=== PATIENT | male | born 1945 | race Caucasian/White ===

== ENCOUNTER 2020-11-24 10:20 | Outpatient (REF) | payer OTHER, SELFPAY ==
[2020-11-24 11:08] LABS: COVID-19 Test Negative (Negative); IDNOW Serial# 55D5AD1C
== END 2020-11-24 10:21 | disposition home or self-care (01) ==
LOC: HO.LAB 10:20
PROVIDERS: Visit Provider Internal Medicine
DX: Z20.822 Contact with and (suspected) exposure to COVID-19 (principal)
CPT/HCPCS: 36415; 87635; C9803

== ENCOUNTER 2021-02-04 10:55 | Outpatient (REF) | payer OTHER, SELFPAY ==
--- NOTE | ~2021-02-04 | MR_ITS ---
MR BRAIN WITHOUT AND WITH CONTRAST CLINICAL INFORMATION: Hearing loss. Tinnitus right ear. COMPARISON: None available. TECHNIQUE: Multiplanar, multisequence MRI of the brain was obtained before and after the intravenous administration of 7 mL Gadavist. FINDINGS: The inner ear structures including the cochlea, vestibules, and semicircular canals exhibit preserved CSF signal intensity with no pathologic enhancement. The vestibular aqueducts are not enlarged. Cranial nerves VII and VIII complexes are normal in morphology. No enhancing CP angle/retrocochlear lesion. There is no pathologic intracranial enhancement. There is global cerebral volume loss and there is mild chronic microangiopathy. No acute infarct on diffusion-weighted imaging. No intracranial hemorrhage on the gradient series. No hydrocephalus, extra-axial surface collection, or herniation. The midline intracranial structures are normal. Cerebellar tonsils are normally positioned. Craniocervical junction is normal. Osseous marrow signal intensity remains homogeneous. No significant soft tissue abnormality is appreciated. MR/MR head/brain wo/w con IMPRESSION: - No retrocochlear pathology. - There is global cerebral volume loss and there is mild chronic microangiopathy.
== END 2021-02-04 10:56 | disposition home or self-care (01) ==
LOC: HO.MRI 10:55
PROVIDERS: PCP Internal Medicine; Visit Provider Otolaryngology
DX: H90.6 Mixed conductive and sensorineural hearing loss, bilateral (principal); H93.11 Tinnitus, right ear; D33.3 Benign neoplasm of cranial nerves
CPT/HCPCS: 70553; A9585

== ENCOUNTER 2023-06-11 03:43 | Emergency (ER) | payer OTHER, SELFPAY ==
--- NOTE | 2023-06-11 | ECG_ITS ---
Test Reason : SOB Blood Pressure : / mmHG Vent. Rate : 072 BPM Atrial Rate : 072 BPM P-R Int : 158 ms QRS Dur : 088 ms QT Int : 400 ms P-R-T Axes : 047 029 033 degrees QTc Int : 438 ms Normal sinus rhythm Normal ECG When compared with ECG of 06-NOV-2017 03:23, No significant change was found Referred By: Generic ED Physician Electronically Signed By:FIDEL MCNEAL MD
[2023-06-11 03:49] VITALS: BP 150/84; PULSE 73; RESP 15; TEMP 36.6; O2SAT 98; BMI 25.0
[2023-06-11 04:18] LABS: Basophils Percent Auto 0.7 % (0-2); Eosinophils Absolute Auto 0.2 X10*3/uL (0.0-0.4); Eosinophils Percent Auto 3.9 % (0-4); Hematocrit 41.5 % (42.0-52.0); Hemoglobin 13.8 g/dl (14.0-18.0); Imm Gran Abs Auto 0.01 X10*3/uL (0.00-0.03); Imm Gran Pct Auto 0.2 % (0.0-0.4); Lymphocytes Absolute Auto 1.4 X10*3/uL (1.2-4.9); Lymphocytes Percent Auto 23.4 % (20-40); MANUAL DIFF FLAG NO; Mean Corpuscular HGB Conc 33.3 g/dl (31.0-36.0); Mean Corpuscular Hemoglobin 30.5 pg (27.0-33.0); Mean Corpuscular Volume 91.8 fL (80.0-98.0); Mean Platelet Volume 10.8 fL (9.4-12.4); Monocytes Absolute Auto 0.7 X10*3/uL (0.1-1.2); Monocytes Percent Auto 11.9 % (2-11); Neutrophils Absolute Auto 3.6 x10*3/uL (2.0-8.3); Neutrophils Percent Auto 59.9 % (45-73); Platelet Count 127 X10*3/uL (160-400); Red Blood Count 4.52 X10*6/uL (4.60-5.80); Red Cell Distribution Width 12.4 % (11.0-16.0)
--- NOTE | 2023-06-11 04:18 | ED.GENADULT ---
HPI - General Adult General Chief complaint: General Medical Stated complaint: SoB, Head pain Time Seen by Provider: 06/11/23 04:10 Source: patient Mode of arrival: ambulatory Limitations: no limitations History of Present Illness HPI narrative: anxiety with left facial pain, patient has had headaches but tonight he developed left facial pain, this made him anxious. No chest pain, no fever Onset (ago): hour(s) Location: face Severity: mild Related Data Home Medications Medication Instructions Recorded Confirmed levothyroxine 50 mcg tablet 50 mcg PO DAILY 01/07/23 01/07/23 naproxen 250 mg tablet 250 mg PO BID PRN 01/07/23 01/07/23 Previous Rx's Medication Instructions Recorded amoxicillin 500 mg tablet 500 mg PO BID 7 days #14 tabs 01/07/23 acetaminophen 500 mg tablet 1,000 mg (2 x 500 mg) PO Q6H PRN 06/11/23 (Tylenol Extra Strength) pain #30 tabs Allergies Allergy/AdvReac Type Severity Reaction Status Date / Time No Known Allergies Allergy Unverified 01/07/23 11:59 Review of Systems Review of Systems: Yes all other systems are reviewed and are negative Neurologic: Denies Sensory deficit (Neuro) [facility] Social History Social History Smoked in Last 30 Days: No Use of substances other than those prescribed or required for medical reasons: No Advance Directives: Yes Advance Directives Information Provided: Yes Advance Directives on File: No Physical Exam ED Vital Signs: Vital Signs - 24 hr 06/11/23 03:49 06/11/23 05:16 Temperature 97.8 F 97.9 F Pulse Rate 73 67 Respiratory Rate 15 16 Blood Pressure 150/84 H 148/65 H Pulse Oximetry 98 97 Oxygen Delivery Method Room Air Room Air BMI result Body Mass Index 25.0 Const Other: anxious elederly male General: healthy appearing Nutritional Appearance: average body habitus Orientation/consciousness: oriented to person and patient oriented x3 Limitations: no limitations HENMT Other: poor dentition, left tender TMJ Head: Yes normal to inspection Ears: external ears normal General nose exam: Normal external nose present Mouth: Normal oral and palatal mucosa present and oropharynx normal Throat: Yes posterior oropharynx normal Eyes General: appearance normal, both eyes and all related structures Neck Neck: Yes normal visual inspection Chest Chest palpation & inspection: normal inspection of the chest Resp Auscultation: clear to auscultation bilaterally Cardio Jugular venous distension: no JVD Rate: regular rate Rhythm: regular rhythm Heart sounds: S1 normal heart sound present and S2 normal heart sound present GI Inspection: Yes normal to inspection Palpation (GI): Soft to palpation, nontender and No hepatosplenomegaly present Auscultation: normal bowel sounds General: Yes no CVA tenderness Back/Spine/Pelvis Back: no CVA tenderness Skin General skin exam: no rashes or lesions noted Neuro General: oriented to person and patient oriented x3 Cranial nerves: Yes CN's II-XII intact bilaterally Motor exam (neuro): 5/5 motor strength present throughout Sensory Exam: No Sensory deficit (Neuro) Extrem General: Yes normal to inspection Psych Appearance: grossly normal Course Reevaluation(s) Reevaluation #1: No sign of infection, the pain is right over the left TMJ will treat with tylenol for now Time: 05:33 Medical Decision Making Differential Diagnosis Differential Diagnoses: The differential diagnosis associated with the presentation includes (cardiac ischemia, dental infection, trigeminal neuralgia, TMJ syndrome were all considered) Admission/Observation Consideration of admission/observation: Escalation of care including admission/observation considered (upon arrival patient was considered for admission) Lab Data MDM Lab Attestation statement: I reviewed the patient's lab results. (renal insufficiency do not know his baseline) 06/11/23 04:13 06/11/23 04:13 Labs: Lab Results 06/11/23 Range/Units 04:13 WBC 6.0 (4.8-10.8) X10*3/uL RBC 4.52 L (4.60-5.80) X10*6/uL Hgb 13.8 L (14.0-18.0) g/dl Hct 41.5 L (42.0-52.0) % MCV 91.8 (80.0-98.0) fL MCH 30.5 (27.0-33.0) pg MCHC 33.3 (31.0-36.0) g/dl RDW 12.4 (11.0-16.0) % Plt Count 127 L (160-400) X10*3/uL MPV 10.8 (9.4-12.4) fL Immature Gran % (Auto) 0.2 (0.0-0.4) % Neut % (Auto) 59.9 (45-73) % Lymph % (Auto) 23.4 (20-40) % [place] % (Auto) 11.9 H (2-11) % Eos % (Auto) 3.9 (0-4) % Baso % (Auto) 0.7 (0-2) % Lymph # (Auto) 1.4 (1.2-4.9) X10*3/uL [place] # (Auto) 0.7 (0.1-1.2) X10*3/uL Eos # (Auto) 0.2 (0.0-0.4) X10*3/uL Baso # (Auto) 0.0 (0.0-0.2) X10*3/uL Abs Immat Gran (auto) 0.01 (0.00-0.03) X10*3/uL Absolute Neuts (auto) 3.6 (2.0-8.3) x10*3/uL Absolute Nucleated RBC 0.000 (0.0-0.012) X10*3/uL Nucleated RBC % (auto) 0.0 (0.0-0.2) /100WBC Sodium 141 (135-145) mmol/L Potassium 4.3 (3.3-5.1) mmol/L Chloride 107 (96-108) mmol/L Carbon Dioxide 22 (22-29) mmol/L Anion Gap 16 (12-20) BUN 27 H (9-16) mg/dL Creatinine 1.73 H (0.5-1.4) mg/dL Estim Creat Clear Calc 30.1 Estimated GFR 38 Random Glucose 103 (60-115) mg/dL Calcium 9.7 (8.4-10.2) mg/dL Total Bilirubin 0.6 (0.0-1.0) mg/dL AST 24 (5-37) U/L ALT 13 (0-40) U/L Alkaline Phosphatase 61 (39-117) U/L Troponin I High Sens < 2.7 (<3.5-35.0) ng/L Total Protein 7.3 (6.5-8.0) g/dL Albumin 4.1 (3.5-5.0) g/dL Independent Interpretation I performed an independent interpretation of an: EKG (sinus 70, no st or twave changes) Tests considered The following testing was considered but not selected: Head CT was considered but this is not a headache and the patient is nonfocal Prescription Management I considered prescription management with: Antibiotic (no evidence of dental infection) Discharge Plan Discharge Clinical Impression: TMJ (temporomandibular joint syndrome) Patient Disposition: Home, Self-Care Instructions: Temporomandibular Disorder (ED) Prescriptions: New acetaminophen [Tylenol Extra Strength] 500 mg tablet 1,000 mg PO Q6H PRN (Reason: pain) Qty: 30 0RF No Action levothyroxine 50 mcg tablet 50 mcg PO DAILY naproxen 250 mg tablet 250 mg PO BID PRN amoxicillin 500 mg tablet 500 mg PO BID 7 Days Qty: 14 0RF Referrals: Dank De Leon MD [Primary Care Provider] - 1 week
[2023-06-11 04:34] LABS: Alanine Aminotransferase 13 U/L (0-40); Albumin Level 4.1 g/dL (3.5-5.0); Alkaline Phosphatase 61 U/L (39-117); Anion Gap 16 (12-20); Aspartate Amino Transferase 24 U/L (5-37); Bilirubin Total 0.6 mg/dL (0.0-1.0); Blood Urea Nitrogen 27 mg/dL (9-16); Calcium 9.7 mg/dL (8.4-10.2); Carbon Dioxide 22 mmol/L (22-29); Chloride 107 mmol/L (96-108); Creatinine Clr Calc Pharmacy 30.1; Estimated Glomerular Filt Rate 38; Glucose Random 103 mg/dL (60-115); Potassium 4.3 mmol/L (3.3-5.1); Sodium 141 mmol/L (135-145); Total Protein 7.3 g/dL (6.5-8.0)
[2023-06-11 04:44] LABS: Troponin-I High Sensitivity < 2.7 ng/L (<3.5-35.0)
[2023-06-11 05:16] VITALS: BP 148/65; PULSE 67; RESP 16; TEMP 36.6; O2SAT 97
--- NOTE | 2023-06-11 05:22 | PC.NURSE ---
Pt presents to ER after having a headache for one week, starting on the back/right of his head, moving to his left side. Pt also reporting some shortness of breath, states he is being seen by a tie buyer. Pt reports 7/10 pain. Pt is very pleasant and talkative, speaking in full sentences. Pt is A&Ox4, GCS 15, with warm, dry skin.
[2023-06-11] MEDS: Acetaminophen 325 MG TABLET 975 MG PO (05:36)
== END 2023-06-11 06:02 | disposition home or self-care (01) ==
PROVIDERS: Emergency Provider Emergency Medicine; PCP Internal Medicine
DX: M26.603 Bilateral temporomandibular joint disorder, unspecified (principal); R06.02 Shortness of breath; R51.9 Headache, unspecified; Z79.899 Other long term (current) drug therapy
CPT/HCPCS: 36415; 80053; 84484; 85025; 93005; 99284; 99285

== ENCOUNTER 2023-07-27 13:48 | Outpatient (AMB) | payer OTHER, SELFPAY ==
--- NOTE | 2023-07-27 14:32 | MHC.OFFVIS ---
Intake Intake Visit Reasons: right sciatica Allergies No Known Allergies Allergy (Unverified 01/07/23 11:59) Assessment & Plan Assessment & Plan (1) Lumbar radiculopathy: Code(s): M54.16 - Radiculopathy, lumbar region Plan Mr Sanchez is here in follow-up. This is a 78-year-old gentleman known to us from our previous practice at [facility]. We saw him about a year and a half ago for his scoliosis with back pain. At that time the symptoms were not disabling so we elected just to continue with conservative management. He tells me that a number of months ago, maybe even as much as a year ago he started to get pain going down his right leg into his lateral thigh and into his calf. At 1st it was just annoying but not anything that was disabling. Slowly over time and in the last few months it started to get to where he is feeling at all the time now. The back pain is unchanged, but the radiculopathy is a new symptom. He has been taking naproxen as needed, Tylenol as needed and has been actively participating in care aide/therapy. On my exam, he is demonstrating some mild weakness of his tibialis anterior in his gait appears antalgic. This is new compared to my last office visit. I went back and looked at his films at [facility] from December of 2021, and again this shows the levoscoliosis with the apex at L2-3. However, at that time he also had foraminal stenosis at L5. My suspicion is he starting to have radicular symptoms related to this L5 foraminal stenosis. However, in light of the fact that the symptoms are new, and he is developing some weakness of his foot I would like to rule out a herniated disc. I will order a noncontrast lumbar MRI here at [place] and call him with the results. At this point the symptoms are bad enough that if there is something significant on the MRI he would be willing to consider surgery. We will need the MRI 1st. Total amount of time spent in this visit was 20 minutes in discussion of symptoms, old lumbar MRI imaging results and subsequent plan of care Timmy Dunlap MD,PhD [facility] Orders: Orders MR lumbar spine wo con Today M54.16 - Radiculopathy, lumbar region Coding Level of Care Code Est Pt Level 3 (38540) Diagnoses Lumbar radiculopathy M54.16
== END 2023-07-27 14:58 | disposition home or self-care (01) ==
PROVIDERS: PCP Internal Medicine; Visit Provider Physician Assistant
DX: M54.16 Radiculopathy, lumbar region (principal)
CPT/HCPCS: 99213

== ENCOUNTER → 2023-07-27 13:48 | Outpatient (BNVA) | payer OTHER, SELFPAY | PROVIDERS: PCP Internal Medicine; Visit Provider Physician Assistant ==

== ENCOUNTER 2023-09-05 10:44 | Outpatient (REF) | payer OTHER, SELFPAY ==
--- NOTE | ~2023-09-05 | MR_ITS ---
EXAMINATION: MR LUMBAR SPINE WITHOUT CONTRAST CLINICAL INFORMATION: Radiculopathy COMPARISON: None TECHNIQUE: MRI of the lumbar spine was obtained using routine sequences without contrast. FINDINGS: Significant dextrocurvature of the upper to mid lumbar spine, apex at L2-L3 and mild compensatory levocurvature of the lower lumbar spine, apex at L4-L5. Left lateral listhesis at L1-L2 and slight right lateral listhesis at L4-L5. Preserved sagittal alignment. Grade 1 retrolisthesis at L1-L2 greater than L2-L3, L3-L4, and L5-S1. Vertebral body heights are maintained. There is no suspicious osseous lesion. Diffuse disc desiccation with severe disc height loss along the concavity of the scoliotic curvature; on the left from L1-L2 through L3-L4 and on the right at L4-L5 and L5-S1. Scattered multilevel endplate Schmorl's nodes and mixed type I/II Modic endplate change with type I Modic endplate changes corresponding to sites of severe disc height loss and most pronounced on the left at L2-L3. Multilevel ventral disc osteophytes. Level by level detail as follows: T12-L1: Annular disc bulge with superimposed left central disc protrusion. No spinal canal or neural foraminal stenosis. L1-L2: Retrolisthesis with disc osteophyte complex and mild bilateral facet arthrosis. Mild spinal canal and left greater than right subarticular zone narrowing with impression upon the traversing left and likely also right L2 nerve roots. Moderate left greater than right neural foraminal stenosis with impingement upon the extraforaminal left L1 nerve root. L2-L3: Left eccentric disc osteophyte complex and mild to moderate bilateral facet arthrosis with ligamentum flavum thickening. Mild spinal canal stenosis and subarticular zone narrowing impressing upon the traversing L3 nerve roots. Moderate to severe left neural foraminal stenosis with impingement upon the exiting left L2 nerve root and mild right neural foraminal stenosis with compression upon the extraforaminal right L2 nerve root. L3-L4: Annular disc bulge with left lateral disc osteophyte and mild to moderate bilateral facet arthrosis with ligamentum flavum thickening. Mild spinal canal and subarticular zone narrowing. Moderate left and mild right neural foraminal stenosis with impingement upon the exiting/extraforaminal left L3 nerve root. L4-L5: Annular disc bulge and moderate bilateral facet arthrosis with ligamentum flavum thickening. Mild spinal canal narrowing predominantly in the transverse dimension and subarticular zone narrowing with impression upon the traversing L5 nerve roots. Moderate right neural foraminal stenosis with impingement upon the exiting/extraforaminal right L4 nerve root and mild left neural foraminal stenosis. L5-S1: Annular disc bulge with thin inferiorly migrated broad-based right paracentral/subarticular disc extrusion and mild bilateral facet arthrosis. No spinal canal stenosis. Impression upon the traversing right and encroachment upon the traversing left S1 nerve roots. Severe right neural foraminal stenosis with compression along the exiting nerve root and impingement upon the extraforaminal segment from a lateral disc osteophyte. No left neural foraminal stenosis. The conus medullaris terminates at the level of L1. The distal spinal cord is normal in appearance. Sacral Tarlov cysts. No epidural fluid collection, hematoma, or mass. There is mild fatty atrophy of the paraspinal musculature. Edema of the left mid paraspinal musculature the basis of denervation or low-grade strain injury. Significant sigmoid colonic diverticulosis with mural thickening presumably on the basis of chronic muscular hypertrophy or peristalsis. The abdominal aorta is of normal contour and caliber. MR/MR lumbar spine wo con IMPRESSION: 1. S-shaped lumbar scoliosis with multilevel degenerative disc disease. 2. Lumbar spondylosis without significant spinal canal stenosis, noting multilevel mild spinal canal and subarticular zone narrowing with impression upon several traversing nerve roots. Neural foraminal stenosis is most pronounced and severe 5 S1 with compression of the exiting nerve root impingement upon the extraforaminal segment from a lateral disc osteophyte. Additional multilevel neural foraminal stenosis with mass effect along the exiting nerve roots as above. 3. Edema of the left mid paraspinal musculature the basis of denervation or low-grade strain injury. 4. Significant sigmoid colonic diverticulosis with mural thickening presumably on the basis of chronic muscular hypertrophy or peristalsis.
== END 2023-09-05 10:45 | disposition home or self-care (01) ==
LOC: HO.MRI 10:44
PROVIDERS: PCP Internal Medicine; Visit Provider Physician Assistant
DX: M54.16 Radiculopathy, lumbar region (principal)
CPT/HCPCS: 72148

== ENCOUNTER 2023-09-12 14:47 | Outpatient (AMB) | payer OTHER, SELFPAY ==
--- NOTE | 2023-09-12 14:51 | MHC.OFFVIS ---
Intake Intake Visit Reasons: discuss surgery Telecommunications Line Mechanic Required: No Allergies No Known Allergies Allergy (Unverified 01/07/23 11:59) Assessment & Plan Assessment & Plan (1) Scoliosis (and kyphoscoliosis), idiopathic: Code(s): M41.20 - Other idiopathic scoliosis, site unspecified (2) Lumbar radiculopathy: Code(s): M54.16 - Radiculopathy, lumbar region Plan Mr Sanchez is here in follow-up. He came back to review his MRI done [place]. It shows the dextroscoliosis we saw previously at the MRI at [facility] with a right L5 foraminal stenosis. At this point the symptoms in his right leg are irritating but not disabling or causing him to have to change any of his daily activities. It can be bothersome with walking but again it does not interfere with his quality of life. We discussed at length, surgical treatment for this can be somewhat complicated in that a simple decompression often will not be enough and that further surgery may be required including either pedicle screws or an interbody spacer to definitively treat it. Therefore, it is best to just continue with conservative management unless the symptoms become disabling to any degree. He will come back and see me in 6 months to re-evaluate. The MRI report also suggest a diagnosis of diverticulosis. He is currently being worked up by a GI doctor for some issues and I told him to discuss this with them. Total amount of time spent in this visit was 20 minutes in discussion of symptoms, lumbar MRI imaging results and subsequent plan of care Timmy Dunlap MD,PhD [facility] Coding Level of Care Code Est Pt Level 3 (65961) Diagnoses Scoliosis (and kyphoscoliosis), idiopathic M41.20 Lumbar radiculopathy M54.16
== END 2023-09-12 15:28 | disposition home or self-care (01) ==
PROVIDERS: PCP Internal Medicine; Visit Provider Physician Assistant
DX: M41.20 Other idiopathic scoliosis, site unspecified (principal); M54.16 Radiculopathy, lumbar region
CPT/HCPCS: 99213

== ENCOUNTER → 2023-09-12 14:47 | Outpatient (BNVA) | payer OTHER, SELFPAY | PROVIDERS: PCP Internal Medicine; Visit Provider Physician Assistant ==

== ENCOUNTER 2024-03-25 13:32 | Outpatient (AMB) | payer OTHER, SELFPAY ==
--- NOTE | 2024-03-25 14:04 | HO.SPINEOV ---
Intake Visit Reasons: 6 month follow up Intake Note: Mr. Sanchez is here today for a 6 month F/u. Endless Bed Drum Sander Required: No Allergies No Known Allergies Allergy (Verified 03/25/24 14:05) Assessment & Plan Assessment & Plan (1) Scoliosis (and kyphoscoliosis), idiopathic: Code(s): M41.20 - Other idiopathic scoliosis, site unspecified Category: Medical Plan Mr Sanchez came back today for a checkup. He is still get intermittent right leg radiculopathy but as outlined in my last note, not bad enough to disable him a keep him from doing most things he wants to do. Reports morning time back achiness and stiffness. I explained to him that this is a combination of factors including spinal degenerative disc disease and his scoliosis but that unless it was absolutely disabling this is not something we would pursue surgery on. We talked about possibly adding Celebrex to his medical routine but he really does not want to take any medications that he does not need. He will talk to his PCP if he wants to consider starting this. He has taken naproxen but worries about some of the side effects. That is certainly seems reasonable. There is no surgery to offer him at this point, and I think that unless things become absolutely disabling, he should just continue on with being active as he can and understand that this is part of his degenerative condition. Total amount of time spent in this visit was 20 minutes in discussion of symptoms, lumbar imaging results and subsequent plan of care Timmy Dunlap MD,PhD [facility] Coding Level of Care Code Est Pt Level 3 (03168) Diagnoses Scoliosis (and kyphoscoliosis), idiopathic M41.20
== END 2024-03-25 15:21 | disposition home or self-care (01) ==
PROVIDERS: PCP Internal Medicine; Visit Provider Neurological Surgery
DX: M41.20 Other idiopathic scoliosis, site unspecified (principal)
CPT/HCPCS: 99213

== ENCOUNTER → 2024-03-25 13:32 | Outpatient (BNVA) | payer OTHER, SELFPAY | PROVIDERS: PCP Internal Medicine; Visit Provider Neurological Surgery ==

== ENCOUNTER 2025-02-17 14:32 | Outpatient (AMB) | payer OTHER, SELFPAY ==
--- NOTE | 2025-02-17 14:39 | A.SPINEOV_ITS ---
Intake Visit Reasons: back pain getting worse Intake Note: Mr. Sanchez is here today c/o back pain that is getting worse. Electrical Construction Project Manager Required: No Allergies No Known Allergies Allergy (Verified 03/25/24 14:05) Assessment & Plan Assessment & Plan (1) Lumbar radiculopathy: Code(s): M54.16 - Radiculopathy, lumbar region Category: Medical Plan Mr Sanchez is here in follow-up. He has scoliotic curvature of his spine. He does not have any leg pain but what he has been dealing with his a bilateral pain in lower lumbar region in the paraspinal area, somewhat near the SI joint actually. He is able to stand up and walk independently although he has a kyphotic posture. His leg strength is full. He has been active and participating in daily exercise sessions with his exercise bike and walking. The discomfort is not disabling but is just at a level where it is annoying enough while he is doing activities. While he is sitting and lying down he is fine. We discussed his imaging again and he is not at a point where he is meeting surgical indications. More less the pain has just really not that bad. He needs more reassurance than anything so we discussed good back health and long-term expectations. I think if he stays active he will be fine. Total amount of time spent in this visit was 20 minutes in discussion of symptoms, x-rays and MRI imaging results and subsequent plan of care Timmy Dunlap MD,PhD [facility] Coding Level of Care Code Est Pt Level 3 (38373) Diagnoses Lumbar radiculopathy M54.16
--- OUTSIDE RECORDS SUMMARY | 2025-02-17 15:05 | XMS_ITS | Clinical Summary ---
Author Organization [facility] Address [address] [place] [address] Care Team Providers Care Soft Boarder Name Role Phone Dank De Leon MD Primary Care Provider + [phone] Allergies No known active allergies Medications No known medications Active Problems No known active problems Family History Medical History Relation Name Comments Osteoarthritis Father Heart disease Mother Hyperlipidemia Mother Relation Name Status Comments Father Mother Social History Tobacco Use Types Packs/Day Years Used Date Smoking Tobacco: Never Smokeless Tobacco: Never Alcohol Use Standard Drinks/Week Comments Yes 0 (1 standard drink = 0.6 oz pur e alcohol) Sex and Gender Information Value Date Recorded Sex Assigned at Not on file Gender Identity Not on file Sexual Orientation Not on file Last Filed Vital Signs Vital Sign Reading Time Taken Comments Blood Pressure - - Pulse - - Temperature - - Respiratory Rate - - Oxygen Saturation - - Inhaled Oxygen Concentration - - Weight 70.3 kg (155 lb) 09/28/2020 10:57 AM EST Height 165.1 cm (5' 5 ) 09/28/2020 10:57 AM EST Body Mass Index 25.79 09/28/2020 10:57 AM EST Plan of Treatment Health Maintenance Due Date Last Done Comments COVID-19 Vaccine (#1) 1945 Depression Screening 1956 Preventative Health Evaluation 02/25/1962 DTap / Tdap / Td (1 - Tdap) 02/25/1963 Shingrix-Zoster Vaccine (1 of 2) 02/25/1994 Fall Risk Assessment 02/25/2009 Pneumococcal Vaccine (1 of 1 - PCV) 02/25/2009 RSV Adult > 60+ Yrs or Pregn ant (1 - 1-dose 75+ series) 02/25/2019 Influenza Vaccine (#1) 2025 Hepatitis B Vaccines Aged Out No long er eligible based on patient's age to complete this topic RSV Ped < 20 months Aged Out No longe r eligible based on patient's age to complete this topic Care Teams Soft Boarder Relationship Specialty Start Date End Date Dank De Leon MD [address] [facility] [address] [facility] [place] [id number] PCP - General Internal Medicine 04/13/20
--- OUTSIDE RECORDS SUMMARY | 2025-02-17 15:05 | XMS_ITS | Clinical Summary ---
Author Organization [facility] ity Address [address] [place] [address] Care Team Providers Care Core Machine Operator Name Role Phone Dank De Leon MD Primary Care Provider Surgical History Surgery Date Site/Laterality Comments HERNIA REPAIR Bilateral PROCEDURE: REPAIR INGUINAL HERNIA APPENDECTOMY PROCEDURE: TX APPENDECTOMY Medical History Medical History Date Comments Hearing loss DX:Hearing loss Irritable bowel syndrome DX:Irri table bowel syndrome Social History Tobacco Use Types Packs/Day Years Used Date Smoking Tobacco: Never Smokeless Tobacco: Never Alcohol Use Standard Drinks/Week Comments No 0 (1 standard drink = 0.6 oz pur e alcohol) Sex and Gender Information Value Date Recorded Sex Assigned at Not on file Legal Sex Male 5:33 AM EST Gender Identity Not on file Sexual Orientation Not on file Obstetrics History Last Filed Vital Signs Vital Sign Reading Time Taken Comments Blood Pressure - - Pulse - - Temperature - - Respiratory Rate - - Oxygen Saturation - - Inhaled Oxygen Concentration - - Weight 68 kg (150 lb) 10/15/2021 11:30 AM EST Height 165.1 cm (5' 5 ) 10/15/2021 11:30 AM EST Body Mass Index 24.96 10/15/2021 11:30 AM EST Plan of Treatment Health Maintenance Due Date Last Done Comments DTaP,Tdap,and Td Vaccines (1 - Tdap) 02/25/1963 Pneumococcal Vaccine: 50+ Ye ars (1 of 1 - PCV) 02/25/1994 Zoster Vaccines (1 of 2) 02/25/1994 RSV Immunization Adult Patie nts (1 - 1-dose 75+ series) 02/25/2019 Cholesterol Screening (Lipid Panel) 07/17/2022 Depression Screening 07/17/2022 Falls Risk Assessment 07/17/2022 Social Influencers of Health Screening 07/17/2022 COVID-19 Vaccine (2023-2 5 season) 2024 Influenza Vaccine (#1) 2025 HIB Vaccines Aged Out No longer eligi ble based on patient's age to complete this topic HPV Vaccines Aged Out No longer eligi ble based on patient's age to complete this topic Hepatitis A Vaccines Aged Out No long er eligible based on patient's age to complete this topic Hepatitis B Vaccines Aged Out No long er eligible based on patient's age to complete this topic IPV Vaccines Aged Out No longer eligi ble based on patient's age to complete this topic MMR Vaccines Aged Out No longer eligi ble based on patient's age to complete this topic Meningococcal ACWY Vaccine Aged Out N o longer eligible based on patient's age to complete this topic Meningococcal B Vaccine Aged Out No l onger eligible based on patient's age to complete this topic RSV Immunization Patients Un ponce 20 months Aged Out No longer eligible b ased on patient's age to complete this topic Varicella Vaccines Aged Out No longer eligible based on patient's age to complete this topic Care Teams Core Machine Operator Relationship Specialty Start Date End Date Dank De Leon MD PCP - General Internal Medicine 04/02/15
--- OUTSIDE RECORDS SUMMARY | 2025-02-17 15:05 | XMS_ITS | Clinical Summary ---
Author Organization [facility], Address [address] [place] [address] [place] [address] Phone Care Team Providers Care Pre Sales Network Engineer Name Role Phone Dank De Leon MD Primary Care Provider + [phone] Allergies No known active allergies Medications levothyroxine (SYNTHROID, LEVOTHROID) 50 MCG tablet 01/19/2021 Active ZOLMitriptan (ZOMIG) 5 MG tablet Take 5 mg by mouth 1 (one) time if needed for migraine May repeat in 2 hours if unresolved. Do not exceed 10 mg in 24 hours. Active Active Problems Problem Noted Date Diagnosed Date Stage 3a chronic kidney disease 11/26/2019 Nephrolithiasis Family History Medical History Relation Comments Prostate cancer Father Heart attack Mother Hypertension Mother Relation Status Comments Father Mother Social History Tobacco Use Types Packs/Day Years Used Date Smoking Tobacco: Never Sex and Gender Information Value Date Recorded Sex Assigned at Not on file Legal Sex Male 4:37 PM EST Gender Identity Not on file Sexual Orientation Not on file Last Filed Vital Signs Vital Sign Reading Time Taken Comments Blood Pressure 122/64 04/10/2024 2:45 PM EDT Pulse 72 04/10/2024 2:45 PM EDT Temperature - - Respiratory Rate - - Oxygen Saturation - - Inhaled Oxygen Concentration - - Weight 65.8 kg (145 lb) 04/12/2023 2:27 PM EDT Height 172.7 cm (5' 8 ) 10/03/2018 12:01 PM EST Body Mass Index 22.05 10/03/2018 12:01 PM EST Plan of Treatment Upcoming Encounters Date Type Department Care Team (Late st Contact Info) Description 04/16/2025 2:00 PM EDT Office Visit [facility], [address] [place] [address] Lukasz Humphrey, [address] [place] [address] Health Maintenance Due Date Last Done Comments Pneumococcal Vaccine: 50+ Ye ars (1 of 2 - PCV) 02/25/1964 Influenza Vaccine (#1) 2025 Hepatitis B Vaccine Aged Out No longe r eligible based on patient's age to complete this topic Insurance [facility] Care Teams Pre Sales Network Engineer Relationship Specialty Start Date End Date Dank De Leon MD [address] [place] [address] PCP - General 06/18/19
--- OUTSIDE RECORDS SUMMARY | 2025-02-17 15:05 | XMS_ITS | Patient Health Record ---
Author Organization [facility] Jai Muniz Address [address] [facility] [place] [address] Care Team Providers Care Wound Care Nurse Name Role Phone Dank De Leon MD Primary Care Provider Unavail able Armin Jackson Unavailable [phone] Reason For Referral No Information Social History Tobacco Use: Social History Observation Description Date Details (start date - stop date) Never Smoker NA - NA Tobacco Use/Smoking Question Answer Notes Are you a: nonsmoker Additional Findings: Tobacco Non-User Current no n-smoker Alcohol Screen Question Answer Notes Did you have a drink containing alcohol in the p ast year? No Points 0 Interpretation Negative Problems Problem Type SNOMED Code ICD Code Onset Dates Problem Status W/U Status Risk Notes Problem Pain in limb (07716863) Pain in unspecified foot (M79.673) Active confirmed Plan Of Treatment Pending Test Test Name Order Date X ray : Foot, left 2V 11/11/2015 Insurance Providers Payer Name Payer Address Payer Phone Subscriber Number Group Number Insured Name Patient Relationship to Insured Coverage Start Date Coverage End Date [facility] [address] [facility] [place] [id number] Gregory Sanchez Self - patient is the insured Medical (General) History Medical History History ICD Code Arthritis Back,Hip,and Knee pain Surgical History Surgery Date(Month/Year) appendectomy 1975 hernia 1975, 2009
== END 2025-02-17 15:27 | disposition home or self-care (01) ==
LOC: HO.HNS 14:33
PROVIDERS: PCP Internal Medicine; Visit Provider Physician Assistant
DX: M54.16 Radiculopathy, lumbar region (principal)
CPT/HCPCS: 99213

== ENCOUNTER 2025-06-12 10:00 | Outpatient (AMB) | payer OTHER, SELFPAY ==
--- OUTSIDE RECORDS SUMMARY | 2025-03-19 10:00 | XMS_ITS ---
Author Organization [facility] Address [address] [place], [place] [phone] Care Team Providers Care Yard Manager Name Role Phone HONORIO RUIZ Primary Care Provider REASON FOR VISIT 42/ follow up Encounters Encounter Location Date Provider Diagnosis [facility] [address] [place] [address] 03/19/2025 HONORIO RUIZ PLAN OF TREATMENT No Information
--- OUTSIDE RECORDS SUMMARY | 2025-05-26 05:18 | XMS_ITS ---
Author Organization [facility] Address [address] [place], [place] [id number] Care Team Providers Care Agricultural Equipment Mechanic Name Role Phone HONORIO RUIZ Primary Care Provider REASON FOR VISIT cx 05/29/25 f/u Encounters Encounter Location Date Provider Diagnosis [facility] [address] [place] [address] 05/26/2025 HONORIO RUIZ PLAN OF TREATMENT No Information
--- OUTSIDE RECORDS SUMMARY | 2025-05-27 10:15 | XMS_ITS ---
Author Organization [facility] Address [address] [place], [place] [phone] Care Team Providers Care Video Control Operator Name Role Phone HONORIO RUIZ Primary Care Provider [phone] REASON FOR VISIT 42 6mo F/U Encounters Encounter Location Date Provider Diagnosis [facility] [address] [place] [address] 05/27/2025 HONORIO RUIZ PLAN OF TREATMENT No Information
--- OUTSIDE RECORDS SUMMARY | 2025-05-29 07:40 | XMS_ITS ---
Author Organization [facility] Address [address] [place], [place] [phone] Care Team Providers Care Head Of Data Name Role Phone HONORIO RUIZ Primary Care Provider [phone] CAROL DE OLIVEIRA Unavailable [phone] REASON FOR VISIT PG/42/6 month f/u Encounters Encounter Location Date Provider Diagnosis [facility] [address] [place] [address] 05/29/2025 CAROL DE OLIVEIRA PLAN OF TREATMENT No Information
--- OUTSIDE RECORDS SUMMARY | 2025-06-05 05:37 | XMS_ITS ---
Author Organization [facility] Address [address] [place], [place] [id number] Care Team Providers Care Security Incident Response Specialist Name Role Phone HONORIO RUIZ Primary Care Provider REASON FOR VISIT Requesting Scans Encounters Encounter Location Date Provider Diagnosis [facility] [address] [place] [address] 06/05/2025 HONORIO RUIZ PLAN OF TREATMENT No Information
--- OUTSIDE RECORDS SUMMARY | 2025-06-06 07:00 | XMS_ITS ---
Author Organization [facility] Address [address] [place], [place] [id number] Care Team Providers Care Hot Water Heater Installer Name Role Phone HONORIO RUIZ Primary Care Provider [phone] ИРИНА JOHNS Unavailable [phone] ALLERGIES Allergen (clinical drug ingredient) Drug/Non Drug Allergy documented on EMR Reaction Allergy Type Onset Date Status hay fever (uncoded) Unknown Allergy Active REASON FOR VISIT JW 42 Leg Pains MEDICATIONS Medication SIG (Take, Route, Frequency, Duration) Notes Start Date End Date Status Levothyroxine Sodium 50 MCG TAKE 1 TABLE T BY MOUTH EVERY DAY Orally Once a day for 90 days Active Pepcid AC 10 MG 1 tablet as needed Orally Twice a day Active Multivitamin - 1 tablet Orally Once a day for 30 day(s) Active Vitamin C 500 MG as directed Orally Active SOCIAL HISTORY Tobacco Use: Social History Observation Description Date Details (start date - stop date) Never Smoker NA - NA Sex Assigned At : Social History Observation Description Sex Assigned At Unknown Smoking Question Answer Notes Are you a: never smoker Section Notes: non smoker PROBLEMS Problem Type ICD Code Onset Dates Problem Status W/U Status Risk SNOMED Code Notes Problem Nocturnal leg cramps (G47.62) Active confirmed [id number] VITAL SIGNS Height 68 in 06/06/2025 Weight 146.6 lbs 06/06/2025 Blood pressure systolic 157 mm Hg 06/06/20 25 Blood pressure diastolic 84 mm Hg 025 BMI 22.29 kg/m2 06/06/2025 Encounters Encounter Location Date Provider Diagnosis [facility] [address] [place] [address] 06/06/2025 ИРИНА JOHNS Nocturnal leg cramps G47.62 ; Essential (primary) hypertension I10 and Spinal stenosis of lumbosacral region M48.07 ASSESSMENTS Encounter Date Diagnosis Assessment Notes Treatment Notes Treatment Clinical Notes Section Notes 06/06/2025 Nocturnal leg cramps (ICD-10 - G47.62) he did have a uri prior to worsening leg cramps and wasnt drinking as much; will check labs to look for electrolyte abnormality; advised to drink at least 64 ounces of fluid a day; if labs normal, consider trying for the MRI of LS spine again 06/06/2025 Essential (primary) hypertension (ICD-10 - I10) Blood pressure elevated in the office again. advised he do the 24 hour monitor as previously advised and to bring in bp readings from home for review 06/06/2025 Spinal stenosis of lumbosacral region (ICD-10 - M48.07) MRI of LS spine was denied in 03/07; seen by Dr Ferrari in 05/08 who advised against any invasive interventions 06/06/2025 Other I am seeing the patient under the supervision of the co-signing physician. The physician was available for consultation at the time of the office visit. PLAN OF TREATMENT Treatment Notes Assessment Notes Nocturnal leg cramps he did have a uri p rior to worsening leg cramps and wasnt drinking as much; will check labs to look for electrolyte abnormality; advised to drink at least 64 ounces of fluid a day; if labs normal, consider trying for the MRI of LS spine again Essential (primary) hypertension Blood p ressure elevated in the office again. advised he do the 24 hour monitor as previously advised and to bring in bp readings from home for review Spinal stenosis of lumbosacral region MR I of LS spine was denied in 03/07; seen by Dr Ferrari in 05/08 who advised against any invasive interventions Other I am seeing the janeen ent under the supervision of the co-signing physician. The physician was available for consultation at the time of the office visit. Next Appt Details Follow Up: prn, Reason: History and Physical Notes * HPI (History of Present Illness) Category Sub-Category Detail Notes Category Not es General Pt c/o leg cram ps at night, takes tumeric, waking him up in the night the last week or so. He doesnt feel the pains much during the day. He has spinal stenosis. saw nicole a week ago who advised against surgery. He is upset about his blood pressure being high today. he reports his blood pressure is not that high at home. Runs usually in the 130 range. It was elevated at his visit in 03/07. At that time a 24 hour blood pressure monitor was ordered which I dont see results for. Physical Examination Category Sub-Category Detail Notes Section Note s EXTREMITIES Edema: BILATERAL, trace, to ankle Cyanosis: none Pulses: 2+ bilateral Varicose veins: LEFT leg, mild media l aspect, no tenderness or cord Sarah's sign negative, no calf te nderness/cord BACK Spine: no tenderness to palpation CHEST Shape and expansion: normal Breath sounds: clear to auscultatio n Rales: none Wheezes: none rubs no HEART Rhythm: regular Murmurs: none Heart sounds: Normal S1 & S2, no S 3/S4 Clicks: none Rubs: none Rate: regular NEUROLOGICAL Sensory: normal Motor: 5/5 strength proxima lly and distally in all 4 extremities Reflexes: 2/4 bilaterally Gait: normal GENERAL General Appearance: pleasant, very anxiou s, NAD; speech pressured
--- OUTSIDE RECORDS SUMMARY | 2025-06-06 12:06 | XMS_ITS ---
Author Organization [facility] Address [address] [place], [place] [phone] Care Team Providers Care Shelving Supervisor Name Role Phone HONORIO RUIZ Primary Care Provider [phone] REASON FOR VISIT Ans service message Encounters Encounter Location Date Provider Diagnosis [facility] [address] [place] [address] 06/06/2025 HONORIO RUIZ PLAN OF TREATMENT No Information
--- OUTSIDE RECORDS SUMMARY | 2025-06-09 07:56 | XMS_ITS ---
Author Organization [facility] Address [address] [place], [place] [phone] Care Team Providers Care Weeder Name Role Phone HONORIO RUIZ Primary Care Provider [phone] REASON FOR VISIT 06/06/25 lab results Encounters Encounter Location Date Provider Diagnosis [facility] [address] [place] [address] 06/09/2025 HONORIO RUIZ PLAN OF TREATMENT No Information
--- OUTSIDE RECORDS SUMMARY | 2025-06-09 08:32 | XMS_ITS ---
Author Organization [facility] Address [address] [place], [place] [phone] Care Team Providers Care House Registry Rn Name Role Phone HONORIO RUIZ Primary Care Provider REASON FOR VISIT labs Encounters Encounter Location Date Provider Diagnosis [facility] [address] [facility] [place] [address] 06/09/2025 HONORIO RUIZ PLAN OF TREATMENT No Information
--- OUTSIDE RECORDS SUMMARY | 2025-06-11 10:13 | XMS_ITS ---
Author Organization [facility] Address [address] [place], [place] [phone] Care Team Providers Care Student Services Director Name Role Phone HONORIO RUIZ Primary Care Provider [phone] REASON FOR VISIT Hearing Loss Encounters Encounter Location Date Provider Diagnosis [facility] [address] [place] [address] 06/11/2025 HONORIO RUIZ PLAN OF TREATMENT No Information
[2025-06-12 10:04] VITALS: BP 140/70; PULSE 74; TEMP 36.8; O2SAT 94; BMI 24.0
--- NOTE | 2025-06-12 10:04 | MHC.OFFWIV ---
Intake Vital Signs 06/12/25 10:04 Height 5 ft 5 in Weight 144 lb BMI 24.0 BP 140/70 H Blood Pressure Location Lt brachial Position Sitting Pulse 74 Pulse Source Pulse Oximeter Temp 98.3 F Temp Source Oral Pulse Oximetry (%) 94 Oxygen Delivery Method Room Air Intake Visit Reasons: EP-cough, sob, tired, ?lt ear blockage Intake Note: pt presents with chest congestion and coughing, lightheaded, SOB, fatigue, decreased hearing LT ear x5 weeks; wears hearing aids Allergies No Known Allergies Allergy (Verified 06/12/25 10:05) Do you need a note to return to daycare/school/sports/work: No HPI HPI Comments History of Present Illness Details History - The patient is an 80-year-old male presenting with hearing loss, ringing in the ears, and a persistent cough. - He states that he has been having some pressure and new ringing in the ears bilaterally. - He has had a persistent cough for four to five weeks, no fever reported. - He states that his cough is dry and he has pain in the chest when he coughs. - He does report a hiatal hernia and acid reflux which he is not sure if this is contributing to this cough. - He had recent blood work and a pulmonary test. - He has follow up with his tobacco wetter and his GI. - He denies fever, chills, CP, SOB, abd pain, n/v/d, sick contacts, or smoking. Physical Exam General: Cooperative, healthy appearing, comfortable and no acute distress Orientation/consciousness: Patient oriented x3 Limitations: No limitations Head: Normal to inspection Ears: Cerumen noted in the canals bilaterally. TMs not visualized. Nose: Normal external nose present, normal nares present, and no nasal discharge present. Face and sinus: Sinuses nontender to palpation. Mouth: Normal oral and palatal mucosa present and moist mucous membranes noted. Throat: Tonsils normal. Uvula is midline. Posterior oropharynx with erythema and no exudates. Eyes: Appearance normal, both eyes and all related structures Neck: Normal visual inspection, full ROM. No lymphadenopathy noted. Respiratory: Clear to auscultation bilaterally. Normal respiratory effort, able to speak in complete sentences. No respiratory distress, not tachypneic, no tripod positioning and no use of accessory muscles. Cardiovascular: Regular rate and rhythm. Normal S1 and S2. No m/r/g noted. Skin: No rashes or lesions noted Patient was informed and verbally consented to the use of an ambient scribe for clinic note documentation during this visit Review of Systems Const All systems reviewed & are unremarkable except as noted in HPI and below Physical Exam Vital Signs: Last Vital Signs Temp 98.3 F 06/12/25 10:04 Pulse 74 06/12/25 10:04 BP 140/70 H 06/12/25 10:04 Pulse Ox 94 06/12/25 10:04 Oxygen Delivery Method Room Air 06/12/25 10:04 BMI result Body Mass Index 24.0 Office Procedures Cerumen Removal From which ear canal was the cerumen removed: bilateral Removal: irrigation Notes: patient tolerated procedure well, no complications and ear canal clear 38631-[id number] Irrigation/Lavage Results Reviewed Results Reviewed: will review the x-ray in the office Assessment & Plan Assessment & Plan (1) Cerumen impaction: Code(s): H61.20 - Impacted cerumen, unspecified ear Qualifiers: Laterality: bilateral Qualified Code(s): H61.23 - Impacted cerumen, bilateral Plan: plan - will irrigate his ears in the office - avoid using q-tips in the ears - follow up with PCP (2) Cough: Code(s): R05.9 - Cough, unspecified Qualifiers: Cough type: acute Qualified Code(s): R05.1 - Acute cough Plan: Most likely URI vs covid vs flu vs bronchitis vs pneumonia plan - will order resp panel in the office - will order CXR - tessalon perles as needed for cough - will start on a z-cory - will call with the results of CXR and resp panel - follow up with PCP Orders: Orders SARS-CoV2/FLU/RSV Today R09.89 - Other specified symptoms and signs involving the circulatory and respiratory systems XR chest 2V Today R05.9 - Cough, unspecified AMB Cerumen Removal Today H61.23 - Impacted cerumen, bilateral Medications: New azithromycin For 250 mg dose pack: take 500 mg today (day 1), then 250 mg for 4 days (days 2-5) PO 6 tabs 0RF benzonatate 100 mg PO bid-tid PRN 21 caps 0RF Cough 7 days Coding Level of Care Code Est Pt Level 4 (72689) Diagnoses Bilateral impacted cerumen H61.23 Laterality: bilateral Acute cough R05.1 Cough type: acute CPT Codes Office Procedure - CPT: 92412-Cwa Irrigation/Lavage ([id number])
--- OUTSIDE RECORDS SUMMARY | 2025-06-12 11:53 | XMS_ITS | Patient Health Record ---
Author Organization [facility] Address [address], [place] [id number] Care Team Providers Care Disease Case Manager Name Role Phone HONORIO RUIZ Primary Care Provider ANGLE, NURSING Unavailable [phone] ИРИНА JOHNS Unavailable [phone] CAROL DE OLIVEIRA Unavailable [phone] ALLERGIES Allergen (clinical drug ingredient) Drug/Non Drug Allergy documented on EMR Reaction Allergy Type Onset Date Status hay fever (uncoded) Unknown Allergy Active REASON FOR REFERRAL Reason Hearing evaluation f or bilateral hearing loss it is worsening. Patient has an appointment at [facility] already made Diagnosis 1 Bilateral hearing lo ss, unspecified hearing loss type (H91.93) Referral Organization [facility] Used Gym Equipment Referring Provider First Name HONORIO Referring Provider Last Name JOSEPH Referring Provider Speciality Internal M edicine General Notes Mike SANABRIA ptionist-Fax Inbox 02/27/2025 01:43:37 PM > faxed [facility], Jessie SANABRIA Admin 04/28/2025 03:51:47 PM > Per incoming document pt had appt on 02/25>no referral required Referral Priority Routine Referral Appointment Date 02/25/2025 Reason 03/05/25 W APPT [facility] foreign bodies for removal Diagnosis 1 Evaluation of hearin g impairment (Z01.10) Referral Organization [facility] Referring Provider First Name HONORIO Referring Provider Last Name JOSEPH Referring Provider Speciality Internal M edicine Referred Organization [facility] (1) Referred Address [address],[place], [place],[address], Referred Provider Specialty Otology, Lar yngology, Rhinology General Notes Jessie SANABRIA Admin 11:51:22 AM > Faxed medical referral, note and most recent labs to [facility] at [phone] requesting an URGENT visit please>NO REFERRAL REQUIRED Referral Priority Urgent MEDICATIONS Medication SIG (Take, Route, Frequency, Duration) [...] a: never smoker Section Notes: non smoker non smoker non smoker non smoker non smoker non smoker non smoker non smoker non smoker non smoker PROBLEMS Problem Type ICD Code Onset Dates Problem Status W/U Status Risk SNOMED Code Notes Problem Dry eyes, bilateral (H04.123) Active confirmed 119310809 Problem Gastro-esophagea l reflux disease without esophagitis (K21.9) Active confirmed Gastro-esophage a l reflux disease without esophagitis (407924946) Problem Essential (primary) hypertension (I10) Active confirmed Essential hypertension (05187812) Problem Dizziness (R42) Active confirmed 802086 003 Problem Chronic kidney disease, unspecified (N18.9) Active confirmed Chronic kidney disease (855719335) Problem Nocturnal leg cramps (G47.62) Active confirmed 324514755 Problem Disorder of lipoprotein metabolism, unspecified (E78.9) Active confirmed Disorder of lipoprotein storage and metabolism (disorder) (183315258) Problem Anxiety disorder, unspecified (F41.9) Active confirmed Anxiety disorde r (367216212) Problem Other chronic pain (G89.29) Active confirmed 68367681 Problem Other spondylosis with radiculopathy, lumbar region (M47.26) Active confirmed Lumbosacral spondylosis without myelopathy (64423046) Problem Lumbago with sciatica, right side (M54.41) Active confirmed 342292867 Problem Chronic obstructive pulmonary disease, unspecified COPD type (J44.9) Active confirmed 76236132 Problem Lung nodule (R91.1) Active confirmed 611866108 Problem Spinal stenosis of lumbosacral region (M48.07) Active confirmed 434629308 Problem Bilateral hearing loss, unspecified hearing loss type (H91.93) Active confirmed 50519609 Problem Benign prostatic hyperplasia, unspecified whether lower urinary tract symptoms present (N40.0) Active confirmed 338053861 Problem Stage 3a chronic kidney disease (N18.31) Active confirmed 055121752 VITAL SIGNS Blood pressure diastolic 84 mm Hg 06/06/2025 Height 68 in 06/06/2025 Blood pressure systolic 157 mm Hg 06/06/2025 Weight 146.6 lbs 06/06/2025 BMI 22.29 kg/m2 06/06/2025 Encounters Encounter Location Date Provider Diagnosis [address] [address] 07/15/2024 HONORIO RUIZ [place] [phone] 10/21/2024 HONORIO RUIZ [place] [phone] 10/22/2024 HONORIO RUIZ Disorder of lipoprotein metabolism, unspecified E78.9 ; Anxiety disorder, unspecified F41.9 ; Essential (primary) hypertension I10 ; Gastro-esophageal reflux disease without esophagitis K21.9 ; Chronic obstructive pulmonary disease, unspecified COPD type J44.9 ; Lung nodule R91.1 ; Chronic kidney disease, unspecified N18.9 ; Paraesophageal hernia K44.9 and History of nocturia Z87.898 [place] [id number] 11/04/2024 HONORIO RUIZ [address] [address] 11/04/2024 HONORIO RUIZ [place] [phone] 11/27/2024 HONORIO RUIZ Disorder of lipoprotein metabolism, unspecified E78.9 ; Essential (primary) hypertension I10 ; Anxiety disorder, unspecified F41.9 ; Gastro-esophageal reflux disease without esophagitis K21.9 ; Lung nodule R91.1 ; Dorsalgia of lumbar region M54.50 ; Stage 3a chronic kidney disease N18.31 and Deficiency of other specified B group vitamins E53.8 [facility] [address] [place] [address] 12/04/2024 [place]SING [place] BP check Z01.[address] [address] 12/04/2024 HONORIO RUIZ [address] [address] 12/30/2024 HONORIO RUIZ Bilateral hearing loss, unspecified hearing loss type H91.[address] [address] 02/28/2025 HONORIO RUIZ [address] [address] 03/04/2025 HONORIO RUIZ Evaluation of hearin g impairment Z01.10 ; Disorder of lipoprotein metabolism, unspecified E78.9 ; Essential (primary) hypertension I10 ; Gastro-esophageal reflux disease without esophagitis K21.9 ; Chronic kidney disease, unspecified N18.9 ; Lung nodule R91.1 and Spinal stenosis of lumbosacral region M48.[address] [address] 03/05/2025 HONORIO RUIZ [address] [address] 03/06/2025 HONORIO RUIZ [address] [address] 03/13/2025 HONORIO RUIZ [address] [address] 03/19/2025 HONORIO RUIZ [facility] [address] [address] 05/26/2025 HONORIO RUIZ [address] [address] 05/27/2025 HONORIO RUIZ [address] [address] 05/29/2025 CAROL DE OLIVEIRA [address] [address] 06/05/2025 HONORIO RUIZ [address] [address] 06/06/2025 ИРИНА JOHNS Nocturnal leg cramps G47.62 ; Essential (primary) hypertension I10 and Spinal stenosis of lumbosacral region M48.07 [facility] [address] [place] [phone] 06/06/2025 HONORIO RUIZ [facility] [address] [place] [address] 06/09/2025 HONORIO RUIZ [facility] [address] [place] [phone] 06/09/2025 HONORIO RUIZ [facility] [address] [place] [address] 06/11/2025 HONORIO RUIZ ASSESSMENTS Encounter Date Diagnosis Assessment Notes Treatment Notes Treatment Clinical Notes Section Notes 06/06/2025 Essential (primary) hypertension (ICD-10 - I10) Blood pressure elevated in the office again. advised he do the 24 hour monitor as previously advised and to bring in bp readings from home for review 03/04/2025 Evaluation of hearing impairment (ICD-10 - Z01.10) Right ear canal with some form of foreign body deep in the canal therefore we will get ENT for consultation ear nose and throat question going on the surgeons foreign body right ear needs to be removed [facility] 03/04/2025 Disorder of lipoprotein metabolism, unspecified (ICD-10 - E78.9) Total cholesterol less than 200 LDL 106. Diet exercise etc. hold medication for patient 12/30/2024 Bilateral hearing loss, unspecified hearing loss type (ICD-10 - H91.93) 12/04/2024 BP check (ICD-10 - Z01.30) Please see telephone encounter for providers collaboration 11/27/2024 Disorder of lipoprotein metabolism, unspecified (ICD-10 - E78.9) Check lipid profile total cholesterol goal is 200 LDL less than 100. 11/27/2024 Essential (primary) hypertension (ICD-10 - I10) Blood pressure on recheck stable. RN blood pressure check for calibration of his home machine in 1 week 10/22/2024 Anxiety disorder, unspecified (ICD-10 - F41.9) 10/22/2024 Disorder of lipoprotein metabolism, unspecified (ICD-10 - E78.9) 06/06/2025 Nocturnal leg cramps (ICD-10 - G47.62) he did have a uri prior to worsening leg cramps and wasnt drinking as much; will check labs to look for electrolyte abnormality; advised to drink at least 64 ounces of fluid a day; if labs normal, consider trying for the MRI of LS spine again 03/04/2025 Essential (primary) hypertension (ICD-10 - I10) Blood pressure elevated in the office states that it is normal at home. Will set up a 24-hour ambulatory blood pressure monitor 11/27/2024 Anxiety disorder, unspecified (ICD-10 - F41.9) Stable no change in therapy 10/22/2024 Essential (primary) hypertension (ICD-10 - I10) 06/06/2025 Spinal stenosis of lumbosacral region (ICD-10 - M48.07) MRI of LS spine was denied in 03/07; seen by Dr Ferrari in 05/08 who advised against any invasive interventions 03/04/2025 Gastro-esophageal reflux disease without esophagitis (ICD-10 - K21.9) 11/27/2024 Gastro-esophageal reflux disease without esophagitis (ICD-10 - K21.9) Stable dietary recommendations discussed 10/22/2024 Gastro-esophageal reflux disease without esophagitis (ICD-10 - K21.9) 10/22/2024 Chronic obstructive pulmonary disease, unspecified COPD type (ICD-10 - J44.9) 11/27/2024 Lung nodule (ICD-10 - R91.1) Stable up-to-date CT of the chest no symptoms 03/04/2025 Chronic kidney disease, unspecified (ICD-10 - N18.9) 10/22/2024 Lung nodule (ICD-10 - R91.1) 11/27/2024 Dorsalgia of lumbar region (ICD-10 - M54.50) Recommend physical therapy. Recommend MRI patient wants to hold for now 03/04/2025 Lung nodule (ICD-10 - R91.1) Stable CAT scan up-to-date benign 10/22/2024 Chronic kidney disease, unspecified (ICD-10 - N18.9) 11/27/2024 Stage 3a chronic kidney disease (ICD-10 - N18.31) Avoid NSAIDs use Tylenol as needed check basic metabolic profile check albumin creatinine ratio 03/04/2025 Spinal stenosis of lumbosacral region (ICD-10 - M48.07) Spinal stenosis increasing symptoms lower extremity therefore we will check labs and an MRI 10/22/2024 Paraesophageal hernia (ICD-10 - K44.9) 11/27/2024 Deficiency of other specified B group vitamins (ICD-10 - E53.8) Check B12 folic acid 10/22/2024 History of nocturia (ICD-10 - Z87.898) 06/06/2025 Other I am seeing the patient under the supervision of the co-signing physician. The physician was available for consultation at the time of the office visit. PLAN OF TREATMENT Pending Test Test Name Order Date EKG 10/22/2024 MRI Lumbar Spine without contrast 2024 MRI Lumbar Spine without contrast 2022 MRI : Spine, Cervical without gadolinium 03/08/2023 24 hour ambulatory blood pressure monito r 03/04/2025 US Scrotum and Contents 06/01/2023 XR Shoulder Right minimum [address] Abdomen & Pelvis with and without IV contrast 06/01/2023 Future Test Test Name Order Date COMPLETE URINALYSIS 04/29/2023 [id number] 10/14/2024 Prostate-Specific Ag (PSA)-[id number] 2024 CBC, Platelet, w/o Differential-[id number] 0 10/14/2024 Lipid Panel-[id number] 10/14/2024 HCV Antibody-[id number] 10/14/2024 BMP8+eGFR-[id number] 10/14/2024 Insurance Providers Payer Name Payer Address Payer Phone Subscriber Number Group Number Insured Name Patient Relationship to Insured Coverage Start Date Coverage End Date [facility] [address] [place], [place] [id number] AMYYADIRA ARLINE Self - patient is the insured MEDICAL (GENERAL) HISTORY Medical History History ICD Code allergies migraine headache IBS diverticulosis Hypothyroidism Chronic lumbar back pain. Nerve root inj ections by Barbara Genao MD Mild chronic kidney disease. Creatinine approxione 0.5. UA for microalbumin negative. Dr. Humphrey Last cholesterol total 174. HDL 44. LDL 105. September 2022 Serum protein electrophoresi s negative. Serum free kappa lambda light chains 1.88 MRI lumbar spine December 2021 de xtroscoliosis multilevel lumbar spondylosis with stenosis CT of the abdomen October 2022 hiatal hernia gastritis. Inflammatory left lower lobe nodule CT of the chest October 2022 12 mm left lo wer lobe nodule Bone mineral density October 2022 FRAX rep ort 14% major fracture. 7% hip Upper GI March 2021 esophageal dysmotil ity large hiatal hernia COVID x1 Kidney stones Cardiac stress echo test August [address] [place] [address] Shayy perry [facility]. After evaluation for his large esophageal herniation she strongly recommended surgery. He has continued to decline surgery despite GIs recommendations Colonoscopy June [address] Armendariz in ternal hemorrhoids diverticulosis History of basal cell carcin cara squamous cell carcinoma. 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 COVID 2 shots. Decli hilda all others Ultrasound abdomen December 2023 coarsened he patic echotexture otherwise negative Chest CT December 2019 for severa l right lower lobe pulmonary nodules measuring up to 0.5 cm unchanged since 2020 no need for follow-up Holter monitor November 2023 normal sinus r hythm MRI of the brain November 2023 no acute int racranial changes Cardiac echo November 2023 norm al ejection fraction mild aortic insufficiency. Mild MR. PFTs November 2023 mildly reduc ed diffusion capacity spirometry otherwise normal question interstitial lung disease Ultrasound of the abdomen December [address] December 2023 stable nodules since Cardiac echo December 2023 normal EF mild AI mild MR Surgical History Surgery Date(Month/Year) hernia appendectomy
--- OUTSIDE RECORDS SUMMARY | 2025-06-12 11:54 | XMS_ITS | Encounter Summary ---
Author Organization [facility], Address [address] [place] [address] Phone Care Team Providers Care Release Manager Name Role Phone Dank De Leon MD Primary Care Provider [phone] Encounter Details Date Type Department Care Team (Late st Contact Info) Description 03/08/2023 Documentation Only [facility] [address] [place] [address] Lukasz Humphrey DO [address] [place] [phone] Social History Tobacco Use Types Packs/Day Years Used Date Smoking Tobacco: Never Sex and Gender Information Value Date Recorded Sex Assigned at Not on file Legal Sex Male 4:37 PM EST Gender Identity Not on file Sexual Orientation Not on file documented as of this encounter Plan of Treatment Upcoming Encounters Date Type Department Care Team (Late st Contact Info) Description 04/22/2026 1:30 PM EDT Office Visit [facility] [address] [place] [phone] Lukasz Humphrey DO [address] [place] [address] documented as of this encounter Visit Diagnoses Not on filedocumented in this encounter Care Teams Release Manager Relationship Specialty Start Date End Date Dank De Leon MD [address] [place] [address] PCP - General 06/18/19 documented as of this encounter
--- OUTSIDE RECORDS SUMMARY | 2025-06-12 11:54 | XMS_ITS | Data Portability ---
Author Organization [place] [facility], Allergy Address [address] [address] Assessment Encounter Date Assessment Date Assessment LastModified by Organization Details LastModified Time 03/19/2025 03/19/2025 80yo male with profound AU SNHL presents for evaluation of the ears. Hearing aid dome removed from the right EAC. Left cerumen impaction removed without difficultly. Otologic exam demonstrates TMs are intact with well-aerated middle ear spaces. Audiogram shows normal sloping to profound AU SNHL with poor word recognition, mildly worse in the left ear compared to testing at the [facility] in 2023. We discussed hearing aid adjustments versus cochlear implant, and patient prefers to trial adjustments first. Recommend annual follow up with repeat audiometric testing, or sooner with any concerns. [email or web address] Not available 03/19/2025 12:14:59 Plan of Treatment Reminders Order Date Submit Date Provider Last Modified By Organization Details Last Modified Time Details Appointments None record ed. Lab None record ed. Referral None record ed. Procedures None record ed. Surgeries None record ed. Imaging None record ed. Medication Orders None record ed. Patient TargetsNo targets recorded. Patient InstructionsNo instructions recorded. Reason for Referral None Reported. Results Created Date Observation Date Name Description Value Unit Range Abnormal Flag Note LastModifiedBy Organization Detail LastModifiedTime 03/19/20 25 audio gram No observ ation record ed. BARCODE Not Available 2024 13:31:02 Result Notes None recorded. Problems Name Problem SNOMED Code Status Onset Date Resolution Date Notes Provider Name and Address Organization Details Recorded Time Sensorine ural hearing loss of bilateral ears 787967748 Active 2015 Sensorine ural hearing loss, bilateral ; Note: Date Diagnosed : 6 3:41 PM (H90.3) Not Available Count includes the [facility] 4 03:09:19 Cough 81514156 Active 2017 Cough; Note: Date Diagnosed : 11/21/2017 2:20 PM (R05) Not Available Count includes the [facility] 4 03:09:20 Dysphonia 73494868 Active 2017 Hoarsenes s; Note: Date Diagnosed : 11/21/2017 2:19 PM (R49.0) Not Available Count includes the [facility] 4 03:09:20 Foreign body in right ear 11172710795 310370 Active 2024 KYLAH WAGGONER PA-C [address],[place] [address], [place], [address] , [facility] - [facility] 5 11:24:56 Impacted cerumen in left ear 08671756622 97322 Active 2024 KYLAH WAGGONER PA-C [address],[place] [address], [facility] [place], [address] , [place] - [facility] 5 11:25:08 Problem Notes None recorded. Procedures Surgical History Date Name Laterality Status Provider Name and Address Organization Details Recorded Time 5 Comp Audio with Tymps - 85532 & 50702 completed SWEETIE RAMOS [address], [address], [place] - [facility] 03/19/2025 11:59:24 5 Cerumen removal without microscope left completed KYLAH WAGGONER PA-C [address], [address], [place] - [facility] 03/19/2025 11:25:15 5 Removal of foreign body from ear canal completed KYLAH WAGGONER PA-C [address], [address], [facility] - [facility] 03/19/2025 11:24:26 Imaging Results None recorded. Procedure Notes None recorded. Medical Equipment None Reported. Allergies No known drug allergies Medications Name Sig Start Date Stop Date Status Note LastModified by Organization Details LastModified Time benzonata te 200 mg capsule 06/05 completed Medicati on ID: [id number] D uration Value: 6 Brand Name: benzonat ate Send Method: E-Prescr ibed Sub s Allowed: subs OK Speci al Instruct ion: TAKE 1 CAPSULE BY MOUTH EVERY 8 HOURS NEEDED FOR COUGH Me dication GenericN benson: benzonat ate Not Available Not Available Not Available fluoroura cil 5 % topical cream PLEASE SEE ATTACHED FOR DETAILED DIRECTIO NS 03/19 completed Not Available Not Available Not Available alprazola m 0.25 mg tablet 06/05 completed Medicati on ID: [id number] D uration Value: 30 Brand Name: alprazol am Send Method: E-Prescr ibed Sub s Allowed: subs OK Speci al Instruct ion: TAKE 1 TABLET BY MOUTH DAILY NEEDED M edicatio nGeneric Name: alprazol am Not Available Not Available Not Available levothyro xine 50 mcg tablet TAKE 1 TABLET BY MOUTH EVERY DAY FOR 90 DAYS active Not Available Not Available No t Available ipratropi um bromide 42 mcg (0.06 %) nasal spray 06/05 completed Medicati on ID: [id number] D uration Value: 30 Brand Name: ipratrop ium bromide Send Method: E-Prescr ibed Sub s Allowed: subs OK Speci al Instruct ion: PLACE 2 SPRAYS IN EACH NOSTRILS THREE TIMES A DAY Medi cationGe nericNam e: ipratrop ium bromide Not Available Not Available Not Available Ranitidin e Hcl 06/05 completed Medicati on ID: [id number] D uration Value: 30 Brand Name: ranitidi ne hcl Send Method: E-Prescr ibed Sub s Allowed: subs OK Speci al Instruct ion: TAKE 1 TABLET BY MOUTH 2 TIMES A DAY Medi cationGe nericNam e: ranitidi ne hcl Not Available Not Available Not Available Vitals Date Recorded Body height Body mass index (BMI) Body weight Provider Name and Address Organization Details Last Updated DateTime 03/19/2025 167.64 cm 23.4 kg/m2 88982.89 g Anuja Mendoza [place] - [facility] 03/19/2025 10:56:24 Social History None recorded. Functional Status None recorded. Mental Status None recorded. Family History Nothing Reported. Medical History No medical history recorded. Past Encounters Encounter ID Performer Location Encounter Start Date Encounter Closed Date Diagnosis/Indication Diagnosis SNOMED-CT Code Diagnosis ICD10 Code Diagnosis IMO Codes Diagnosis Note [id number] KYLAH WAGGONER PA-C [facility] [address] [place] [address] 03/19/2025 10:46:17 03/19/2025 12:14:31 Sensorineural hearing loss of bilateral ears 795747592 H90.3 Audiologic al evaluation results: Right ear: Normal sloping to profound sensorineu ral hearing loss with poor word recognitio n. Left ear: Normal sloping to profound sensorineu ral hearing loss with poor word recognitio n. Binaural WRS with MLV instead of recorded was tested today. He received a poor score with this as well, although 20% better than monaural testing. Tympanomet ry: Right Ear:Type A Left Ear:Type A Foreign fallon dy in right ear 1338371977 7604346 T16.1XXA 3443297 Impacted c erumen in left ear 2147543481 273162 H61.22 5215649 Health Concerns Section Related Observation LastModified by Organization Detai ls LastModified Time None Recorded Concern Status LastModified by Organization Details LastModified Time None Recorded Advance Directives Directive None Recorded Payers Insurance Date Sequence Insurance Name Policy Number Policy Morgan Covered Member ID Morgan Member ID Guarantor Name 03/19/[address] [place] [address] [id number] Gregory Sanchez [id number] Gregory Sanchez Notes Date Note Type Note Provider Name and Address Organization Details Recorded Time 03/19/2025 text/html ROS as noted in the HPI 80-year-old male with longstanding sensorineural hearing loss presents for evaluation of foreign body in the ear. He wears hearing aids bilaterally. He would like to update his audiogram. He has been getting hearing tests at the [facility]. Lukasz Munroe, [address],[place] [address], [place], [address], [facility] - [facility] 03/19/2025 16:43:00
--- OUTSIDE RECORDS SUMMARY | 2025-06-12 11:54 | XMS_ITS | Clinical Summary ---
[facility] Organization [facility] [place] [place] [address] Care Team Providers Care Rec Therapist Name Role Phone Dank De Leon MD Primary Care Provider [phone] Surgical History Surgery Date Site/Laterality Comments HERNIA REPAIR Bilateral PROCEDURE: REPAIR INGUINAL HERNIA APPENDECTOMY PROCEDURE: NM APPENDECTOMY Medical History Medical History Date Comments [...] series) 02/25/2019 Cholesterol Screening (Lipid Panel) 07/17/2022 Falls Risk Assessment 07/17/2022 Social Influencers of Health Screening 07/17/2022 Depression Screening 08/14/2024 COVID-19 Vaccine (2023-2 5 season) 2025 Influenza Vaccine (#1) 2025 HIB Vaccines Aged [...] age to complete this topic Care Teams Rec Therapist Relationship Specialty Start Date End Date Dank De Leon MD PCP - General Internal Medicine 04/02/15
--- OUTSIDE RECORDS SUMMARY | 2025-06-12 11:54 | XMS_ITS | Clinical Summary ---
Author Organization [facility] Address [address] [place] [place] [address] Phone Care Team Providers Care Print Shop Stenographer Name Role Phone Dank De Leon MD Primary Care Provider + [phone] Allergies No known active allergies Medications levothyroxine (SYNTHROID, LEVOTHROID) 50 MCG tablet 01/19/2021 Active ZOLMitriptan (ZOMIG) 5 MG tablet Take 5 mg by mouth 1 (one) time if needed for migraine May repeat in 2 hours if unresolved. Do not exceed 10 mg in 24 hours. Active Active Problems Problem Noted Date Diagnosed Date Stage 3a chronic kidney disease 11/26/2019 Nephrolithiasis Encounters Date Type Department Care Team Description 04/16/2025 2:00 PM EDT Office Visit [facility] [address] [place] [address] Lukasz Humphrey DO Stage 3a chronic kidney disease (HCC) (Primary Dx); Nephrolithiasis from Last 3 Months Family History Medical History Relation Comments Prostate [...] Sign Reading Time Taken Comments Blood Pressure 124/68 04/16/2025 2:31 PM EDT Pulse 72 04/16/2025 2:31 PM EDT Temperature - - Respiratory Rate [...] Visit [facility], [address] [place] [address] Lukasz Humphrey, DO [address] [place] [phone] Health Maintenance Due Date Last Done Comments Pneumococcal Vaccine: 50+ Ye ars (1 of 2 - PCV) 02/25/1964 Influenza Vaccine (#1) 2025 Hepatitis B Vaccine Aged Out No longe r eligible based on patient's age to complete this topic Procedures Procedure Name Priority Date/Time Associated Diagnosis Comments URINE ALBUMIN / CREATININE RATIO Routine 04/24/2025 9:00 AM EDT Stage 3a chronic kidney disease (HCC) Nephrolithiasis URINALYSIS WITH MICROSCOPIC Routine 04/24/2025 9:00 AM EDT Stage 3a chronic kidney disease (HCC) Nephrolithiasis RENAL FUNCTION PANEL Routine 04/24/2025 9:00 AM EDT Stage 3a chronic kidney disease (HCC) Nephrolithiasis MICROSCOPIC EXAMINATION - DO NOT USE Routine 04/24/2025 9:00 AM EDT from Last 3 Months Results * Microscopic Examination (04/24/2025 9:00 AM EDT) WBC, Urine None seen 0 - 5 /hpf [facility] RBC, Urine None seen 0 - 2 /hpf [facility] Squamous Epithelial, Urine None seen 0 - 10 /hpf [facility] Casts None seen None seen /lpf [facility] Bacteria, Urine None seen None seen/Few [facility] 04/24/2025 9:00 AM EDT 04/24/2025 Lukasz Humphrey DO LAB MICROBIOLOGY - GENERAL ORDMarlyn MUNIZ Final Result Performing Organization Address City/[facility]/ZIP Co de Phone Number [facility] [address] [place] [address] * Urine Albumin / Creatinine Ratio (04/24/2025 9:00 AM EDT) Creatinine, Ur 107.1 Not Estab. mg/dL [facility] Albumin, Urine 18.2 Not Estab. ug/mL [facility] Albumin/Creatin ine Ratio 17 0 - 29 mg/g creat [facility] Comment: Normal: 0 - 29 Moderately increased: 30 - 300 Severely increased: >300 Urine Urine specimen obtained by clean catch procedure / Unknown 04/24/2025 9:00 AM EDT 04/24/2025 Lukasz Humphrey DO LAB URINE ORDERABLES Final Resu lt Performing Organization Address City/[facility]/ZIP Co de Phone Number [facility] [address] [place] [address] * Urinalysis with microscopic (04/24/2025 9:00 AM EDT) Specific Table [place], Urine 1.019 1.005 - 1.030 [facility] [phone] pH Urine 6.0 5.0 - 7.5 [facility] [phone] Color, Urine Yellow Yellow [facility] [phone] Appearance Urine Clear Clear [facility] WBC Esterase Urine Negative Negative [facility] [phone] Protein, Ur Trace Negative/Tra ce [facility] [phone] Glucose, Ur Negative Negative [facility] Ketones, Urine Negative Negative [facility] Blood Urine Negative Negative [facility] [phone] Bilirubin Urine Negative Negative [facility] Urobilinogen Urine 1.0 0.2 - 1.0 mg/dL [facility] Nitrite, Urine Negative Negative [facility] Microscopic Examination Comment [facility] Comment:Microscopic follows if indicated. Other Microsc. Observations See below: [facility] Comment:Microscopic was margot cated and was performed. Urine Urine specimen obtained by clean catch procedure / Unknown 04/24/2025 9:00 AM EDT 04/24/2025 us Lukasz Humphrey DO LAB URINE ORDERABLES Final Resu lt [facility] [address] [place] [address] * (ABNORMAL) Renal Function Panel (04/24/2025 9:00 AM EDT) Glucose 99 70 - 99 mg/dL [facility] BUN 29(H) 8 - 27 mg/dL [facility] Creatinine 1.52(H) 0.76 - 1.27 mg/dL [facility] eGFR CKD-EPI CR 2020 46(L) >59 mL/min/1.7 3 [facility] BUN/Creatinine Ratio 19 10 - 24 [facility] Sodium 139 134 - 144 mmol/L [facility] Potassium 4.2 3.5 - 5.2 mmol/L [facility] Chloride 102 96 - 106 mmol/L [facility] Bicarbonate (CO2) 21 20 - 29 mmol/L [facility] Calcium 9.2 8.6 - 10.2 mg/dL [facility] Albumin 4.3 3.7 - 4.7 g/dL [facility] Phosphorus 2.9 2.8 - 4.1 mg/dL [facility] Blood Venous blood / Unknown 04/24/2025 9:00 AM EDT 04/24/2025 us Lukasz Humphrey DO LAB BLOOD ORDERABLES Final Resu lt [facility] [address] [place] [address] from Last [address] [place] [address] Care Teams Print Shop Stenographer Relationship Specialty Start Date End Date Dank De Leon MD [address] [place] [address] PCP - General 06/18/19
--- OUTSIDE RECORDS SUMMARY | 2025-06-12 11:54 | XMS_ITS | Clinical Summary ---
Author Organization [facility] Address [address] [place] [address] Care Team Providers Care Motion Picture Critic Name Role Phone Dank De Leon MD Primary Care Provider + [phone] Allergies No known active allergies Medications No [...] age to complete this topic Care Teams Motion Picture Critic Relationship Specialty Start Date End Date Dank De Leon MD [address] [facility] [address] [facility] [id number] PCP - General Internal Medicine 04/13/20
--- OUTSIDE RECORDS SUMMARY | 2025-06-12 11:54 | XMS_ITS | Encounter Summary ---
Author Organization [facility] Address [address] [place] [address] Phone Care Team Providers Care Bell Staff Name Role Phone Dank De Leon MD Primary Care Provider [phone] Encounter Details Date Type Department Care Team (Late st Contact Info) Description 11/08/2022 Documentation Only [facility] [address] [place] [address] Lukasz Humphrey DO [address] [place] [phone] Social History Tobacco Use Types Packs/Day Years [...] Visit [facility] [address] [place] [phone] Lukasz Humphrey DO [address] [place] [address] documented as of this encounter Visit Diagnoses Not on filedocumented in this encounter Care Teams Bell Staff Relationship Specialty Start Date End Date Dank De Leon MD [address] [place] [address] PCP - General 06/18/19 documented as of this encounter
--- OUTSIDE RECORDS SUMMARY | 2025-06-12 11:55 | XMS_ITS | Patient Health Record ---
Author Organization [facility] Address [address] [place] [address] Care Team Providers Care Miner Operator Name Role Phone Dank De Leon MD Primary Care Provider Unavail able Armin Souza Unavailable [phone] Reason For Referral No Information Social History [...] Status Risk Notes Problem Pain in limb (00980318) Pain in unspecified foot (M79.673) Active confirmed Plan Of Treatment Pending Test Test Name Order Date X ray : Foot, left 2V 11/11/2015 Insurance Providers Payer Name Payer Address Payer Phone Subscriber Number Group Number Insured Name Patient Relationship to Insured Coverage Start Date Coverage End Date [facility] [address] [facility] [place] [id number] Sanchez Self - patient is the insured Medical (General) History Medical History History ICD Code Arthritis Back,Hip,and Knee pain Surgical History Surgery Date(Month/Year) appendectomy 1975 hernia 1975, 2009
== END 2025-06-12 11:41 | disposition home or self-care (01) ==
PROVIDERS: PCP Internal Medicine; Visit Provider Physician Assistant Medical
DX: H61.23 Impacted cerumen, bilateral (principal); R05.1 Acute cough

== ENCOUNTER 2025-06-12 10:00 | Outpatient (REF) | payer OTHER, SELFPAY ==
--- NOTE | ~2025-06-12 | XR_ITS ---
EXAMINATION: XR CHEST 2 VIEWS HISTORY: R05.9 - Cough, unspecified COMPARISON: Comparison is made with the prior examination dated 11/06/2017. FINDINGS: PA and lateral views of the chest are submitted. There are mildly increased interstitial markings without change. There are no focal airspace opacities. There is no pleural effusion, pneumothorax, or pulmonary vascular congestion. The heart is normal in size. There is a large hiatal hernia. The bones are intact. XR/XR chest 2V IMPRESSION: Large hiatal hernia. No acute cardiopulmonary abnormality. Electronically signed by: Hilario Bateman MD 06/12/2025 11:54 AM EDT
[2025-06-12 15:34] LABS: Resp Syncy Virus RNA Qual PCR NEGATIVE (Negative); SARS COV2 PCR INHOUSE NEGATIVE (Negative)
== END 2025-06-12 10:01 | disposition home or self-care (01) ==
LOC: HO.HMGCX 10:00
PROVIDERS: PCP Internal Medicine; Referring Provider Internal Medicine Pulmonary Disease; Visit Provider Physician Assistant Medical
DX: H61.23 Impacted cerumen, bilateral (principal); R05.1 Acute cough
CPT/HCPCS: 69209; 71046; 87637

== ENCOUNTER → 2025-06-12 11:39 | Outpatient (BNV) | payer OTHER, SELFPAY | PROVIDERS: PCP Internal Medicine; Referring Provider Internal Medicine Pulmonary Disease; Visit Provider Radiology Diagnostic Radiology | DX: K44.9 Diaphragmatic hernia without obstruction or gangrene (principal) | CPT/HCPCS: 71046 ==